=== PATIENT | male | born 1990 | race Caucasian/White ===

== ENCOUNTER → 2017-07-08 | Outpatient (CLI) | payer OTHER ==
--- NOTE | 2017-07-08 15:37 | DIAGNOSTIC IMAGING REPORT ---
LUMBAR SPINE 7 VIEWS including flexion and extension HISTORY: SACRAL DIMPLE, LOW BACK PAIN COMPARISON: None. FINDINGS: There is no fracture. No subluxation. Disc spaces are preserved. There is a left-sided L5 pars defect with a possible right-sided L5 pars defect. The alignment remains intact throughout flexion and extension. Minimal levoscoliosis which may be positional. IMPRESSION: 1. A left-sided L5 pars defect with a possible right-sided L5 pars defect. The alignment remains intact throughout flexion and extension. 2. Minimal levoscoliosis of the lumbar spine which may be positional. 3. Disc spaces are preserved. Electronically signed by: Yves Galvan M.D. 07/08/2017 3:35 PM Dictated Date/Time: 07/08/2017 3:33 PM
== END | disposition home or self-care (01) ==
LOC: C.RAD 14:32
PROVIDERS: ATTEND Physician Assistant
DX: L05.91 Pilonidal cyst without abscess (principal); M54.5 Low back pain

== ENCOUNTER 2018-01-05 19:21 | Emergency (ER) | payer BC, OTHER ==
[~2018-01-05] VITALS: Ht 175.3 cm; Wt 148.5 kg
[2018-01-05 19:45] VITALS: TEMP 36.8; Ht 175.3 cm; Wt 148.5 kg
--- NOTE | 2018-01-05 20:59 | DIAGNOSTIC IMAGING REPORT ---
LEFT HUMERUS 2 VIEWS CLINICAL HISTORY: Left biceps pain after lifting. FINDINGS: AP and lateral views of the left humerus are obtained. No prior studies are available for comparison at the time of dictation. The skeletal structures are well mineralized. There is no radiographic evidence of left humeral fracture. The shoulder and elbow joints are grossly maintained. The overlying soft tissues are normal as imaged. IMPRESSION: Unremarkable radiographic assessment of the left humerus. Electronically signed by: Ricky Hall M.D. 01/05/2018 8:58 PM Dictated Date/Time: 01/05/2018 8:57 PM
--- NOTE | 2018-01-05 21:13 | EMERGENCY ROOM VISIT NOTE ---
History First contact with patient: 20:09 Chief Complaint: ARM PAIN Stated Complaint: LEFT ARM PAIN, FEELS LIKE TORE SOMETHING History of Present Illness The patient is a 27 year old male who presents to the Emergency Room via private vehicle with complaints of "left arm pain, feels like tore something". The patient states that last Friday he was lifting a stove into his truck. He notes that shortly thereafter he developed pain in the left medial bicep region. He notes it is worse with movement. It is worse with lifting. The pain has continued. He was evaluated and given steroids and it has not improved. He rates the pain as a 4/10. He denies any chest pain or shortness of breath. He is right-hand dominant. Review of Systems A complete 6-point Review of Systems was discussed with the patient, with pertinent positives and negatives listed in the History of Present Illness. All remaining Review of Systems questions can be considered negative unless otherwise specified. Past Medical/Surgical History No pertinent. Social History Smoking Status: Never Smoker Patient is employed and lives locally. Physical Exam Vital Signs Date Time Temp Pulse Resp B/P (MAP) Pulse Ox O2 Delivery O2 Flow Rate FiO2 01/05/18 21:27 92 18 136/72 98 01/05/18 19:45 36.8 88 18 118/80 93 Room Air Physical Exam VITAL SIGNS - Vital signs and nursing notes were reviewed. Stable. GENERAL -27-year-old male appearing his stated age who is in no acute distress. Communicates well with provider and answers questions appropriately. SKIN - Without rashes. No meningeal or petechial rash. EXTREMITIES -minimal left anterior bicipital tenderness. No decreased range of motion of left elbow, left shoulder or left wrist region. He is neurovascularly intact in this region. No palpable deformity to the bicep. Medical Decision & Procedures ER Provider Diagnostic Interpretation: LEFT HUMERUS 2 VIEWS CLINICAL HISTORY: Left biceps pain after lifting. FINDINGS: AP and lateral views of the left humerus are obtained. No prior studies are available for comparison at the time of dictation. The skeletal structures are well mineralized. There is no radiographic evidence of left humeral fracture. The shoulder and elbow joints are grossly maintained. The overlying soft tissues are normal as imaged. IMPRESSION: Unremarkable radiographic assessment of the left humerus. Electronically signed by: Ricky Hall M.D. 01/05/2018 8:58 PM Dictated Date/Time: 01/05/2018 8:57 PM Medical Decision Patient was seen and evaluated as above in room D1. He presents with left anterior bicep pain. This is after lifting. Review was performed of nursing notes and vital signs. After obtaining a thorough history and physical examination the above work up was performed. X-ray negative. He declined pain medication. I suspect he likely is experiencing a muscle strain, however he is to follow with orthopedics for further evaluation and management. Arm sling was applied however he was educated upon risk of frozen shoulder and how to prevent this. Contact information for orthopedics provided. The patient was educated upon management, had questions answered prior to discharge, and was discharged home in good condition. In the evaluation and treatment of this patient, the following differential diagnoses were considered: Bicep tear, bicipital tendinitis, fracture, forearm Contusion, Radial Head Fracture, Radial Styloid Process Fracture, Ulnar Styloid Process Fracture, Radius Fracture, Ulnar Fracture, Tennis Elbow, Golfer's Elbow , or Elbow Fracture. Impression Primary Impression: Arm pain, left Departure Information Dispostion Home / Self-Care Condition GOOD Referrals No Doctor, Assigned (PCP) Sanchez Ochoa D.O. Patient Instructions [facility] Additional Instructions You have been treated in the Emergency Department for arm pain. For pain control, you can use the following [id number] medicines: - Regular strength (325mg/tab) Tylenol (acetaminophen) 2 tabs every 4-6 hours as needed. Do not exceed 12 tablets in a 24 hour period. Avoid taking more than 3 grams (3000 mg) of Tylenol per day. This includes any other sources of acetaminophen you may take on a regular basis. - Regular strength (200 mg/tab) Advil (ibuprofen) 1-2 tabs every 4-6 hours as needed. Do not exceed a dose of 3200 mg per day. If this is a recent injury (<24 hrs), ice can be applied to the area of pain for the first 3 days to help decrease pain and inflammation. You have been provided the number for an Orthopaedic Surgeon. You should call this number as soon as possible to establish a follow-up visit from today's Emergency Department visit. Keep the sling/splint in place until evaluated by Orthopedics. Return to the Emergency Department if your current symptoms worsen despite treatment course outlined above, or if you develop any of the following symptoms : intractable pain despite aforementioned treatment course or new onset of numbness or tingling of the arm.
[2018-01-05 21:27] VITALS: BP 136/72; PULSE 92; O2SAT 98
== END 2018-01-05 21:29 | disposition home or self-care (01) ==
LOC: C.EDB 19:23 → C.EDD 21:29
DX: M79.602 Pain in left arm (principal); X50.0XXA Overexertion from strenuous movement or load, initial encounter; Y92.9 Unspecified place or not applicable